=== PATIENT | female | born 1975 | race Caucasian/White ===

== ENCOUNTER 2020-10-25 15:16 | Inpatient (IN) ==
[2020-10-25 16:40] LABS: Basophils % 0.2 % (0.0-0.8); Eosinophils % 0.4 % (0.00-10.9); Hematocrit 42.2 VOL% (35.7-47.0); Immature Granulocytes % 0.4 %; Immature Granulocytes Absolute 0.02 #; Lymphocytes # 1.3 10*3/uL (1.4-4.0); Lymphocytes % 28.6 % (21.3-54.2); Mean Corpuscular HGB Conc 30.8 GM/DL (32-36); Mean Corpuscular Volume 83.1 FL (87-102); Mean Platelet Volume 10.5 FL (9.6-12.0); Monocytes % 8.2 % (1.7-12.7); Neutrophils % 62.2 % (38.7-73.9); Platelet Count 283 T/CUMM (130-400); Red Blood Count 5.08 MC/CUMM (3.8-5.5); Red Cell Distribution Width 14.6 % (9.3-17.3); White Blood Count 4.6 T/CUMM (4-12)
[2020-10-25] MEDS ORDERED: cefTRIAXone 1,000 MG in SODIUM CHLORIDE 0.9% 100 ML IV STA (16:50)
[2020-10-25] MEDS ORDERED: DEXAMETHASONE 4 MG/1 ML VIAL IV STA (16:50)
[2020-10-25] MEDS ORDERED: AZITHROMYCIN INJ 500 MG in SODIUM CHLORIDE 0.9% 250 ML IV STA (16:50)
[2020-10-25 17:00] LABS: Alanine Aminotransferase 36 U/L (13-56); Albumin 3.2 G/DL (3.4-5.0); Alkaline Phosphatase 72 U/L (45-117); Aspartate Amino Transferase 52 U/L (0-37); Bilirubin,Total < 0.39 MG/DL (0.20-1.00); Blood Urea Nitrogen 9 MG/DL (7-18); Calcium 8.8 MG/DL (8.5-10.1); Carbon Dioxide 25 MMOL/L (21-32); Estimated Glom Filtration Rate 144 ML/MIN; Glucose 93 MG/DL (74-106); Osmolality,Calculated 271.8 MOS/KG (273-304); Potassium 3.5 MMOL/L (3.5-5.1); Sodium 137 MMOL/L (136-145); Total Protein 7.6 G/DL (6.4-8.2)
[2020-10-25 17:02] LABS: Ferritin 53.4 ng/ml (8-252)
[2020-10-25 17:18] LABS: Atypical Lymphocytes Few; Band Neutrophils 2 % (0-10); Lymphocytes 29 % (20-55); Segmented Neutrophils 60 % (50-85); Total Cells Counted 100
[2020-10-25 17:19] LABS: Platelet Estimate Normal
[2020-10-25 17:20] LABS: Hypochromasia 2+; Ovalocytes Few; Polychromasia Slight
[2020-10-25] MEDS ORDERED: SODIUM CHLORIDE 0.9% 1,000 ML IV SCH (17:30)
[2020-10-25] MEDS ORDERED: hydrALAZINE 20 MG/1 ML VIAL IV PRN (17:30)
[2020-10-25] MEDS ORDERED: ONDANSETRON 4 MG/2 ML VIAL IV PRN (17:30)
[2020-10-25] MEDS ORDERED: GLUCAGON 1 MG VIAL IM PRN (17:30)
[2020-10-25] MEDS ORDERED: DEXTROSE 50% 25 GM/50 ML VIAL IV PRN (17:30)
[2020-10-25] MEDS ORDERED: diphenhydrAMINE CAP 25 MG CAPSULE PO PRN (17:30)
[2020-10-25] MEDS ORDERED: DOCUSATE SODIUM 100 MG CAPSULE PO PRN (17:30)
[2020-10-25] MEDS ORDERED: ENOXAPARIN 40 MG/0.4 ML SYRINGE SUBCUT SCH (17:30)
[2020-10-25] MEDS ORDERED: ZALEPLON 5 MG CAPSULE PO PRN (17:30)
[2020-10-25] MEDS ORDERED: ACETAMINOPHEN 325 MG TABLET PO PRN (17:30)
[2020-10-25] MEDS ORDERED: NICOTINE 21 MG/24 HR PATCH TRANSDERM PRN (17:30)
[2020-10-25 17:44] LABS: ABG Oxygen Saturation 95.2 % (95-100); ABG PCO2 31.3 MM HG (35-48); ABG PH 7.515 (7.35-7.45); ABG PO2 69.1 MM HG (80-95); ABG TCO2 22.2 MMOL/L (23-27)
[2020-10-25] MEDS ORDERED: IVERMECTIN 3 MG TABLET PO SCH (18:00)
[2020-10-25] MEDS ORDERED: ALBUTEROL INHALER 18 GM INH PRN (18:00)
[2020-10-25] MEDS: SODIUM CHLORIDE 0.9% 1,000 ML IV SCH (19:30)
[2020-10-25] MEDS: guaiFENesin/DM ER 600-30 MG TABLET PO PRN (20:50)
[2020-10-25] MEDS: ENOXAPARIN 40 MG/0.4 ML SYRINGE SUBCUT SCH (20:50)
[2020-10-26] MEDS: ALBUTEROL INHALER 18 GM INH SCH ×6 (02:15→21:03)
[2020-10-26 05:14] LABS: Hemoglobin 11.9 GM/DL (12.0-16.0); Immature Granulocytes % 0.9 %; Immature Granulocytes Absolute 0.02 #; Lymphocytes # 0.8 10*3/uL (1.4-4.0); Lymphocytes % 39.2 % (21.3-54.2); Mean Corpuscular HGB Conc 31.3 GM/DL (32-36); Mean Corpuscular Volume 81.4 FL (87-102); Mean Platelet Volume 10.2 FL (9.6-12.0); Monocytes % 5.2 % (1.7-12.7); Neutrophils % 54.7 % (38.7-73.9); Platelet Count 310 T/CUMM (130-400); Red Blood Count 4.67 MC/CUMM (3.8-5.5); Red Cell Distribution Width 14.6 % (9.3-17.3); White Blood Count 2.1 T/CUMM (4-12)
[2020-10-26 05:34] LABS: Calcium 8.3 MG/DL (8.5-10.1); Osmolality,Calculated 278.4 MOS/KG (273-304); Potassium 3.5 MMOL/L (3.5-5.1)
[2020-10-26 05:43] LABS: Lymphocytes 33 % (20-55); Platelet Estimate Adequate; Segmented Neutrophils 61 % (50-85); Total Cells Counted 100
[2020-10-26] MEDS ORDERED: REMDESIVIR 200 MG in SODIUM CHLORIDE 0.9% 210 ML IV ONE (09:00)
[2020-10-26] MEDS: PANTOPRAZOLE 40 MG TABLET PO SCH (10:10)
[2020-10-26] MEDS: guaiFENesin/DM ER 600-30 MG TABLET PO PRN (10:10)
[2020-10-26] MEDS: CHOLECALCIFEROL 1,000 UNIT TABLET PO SCH (10:10)
[2020-10-26] MEDS: ZINC GLUCONATE 50 MG TABLET PO SCH (10:10)
[2020-10-26] MEDS: FAMOTIDINE 20 MG TABLET PO SCH ×2 (10:10→20:47)
[2020-10-26] MEDS: ASCORBIC ACID 500 MG TABLET PO SCH ×2 (10:10→20:47)
[2020-10-26] MEDS: DEXAMETHASONE 4 MG/1 ML VIAL IV SCH (10:13)
[2020-10-26] MEDS: cefTRIAXone 1,000 MG in SODIUM CHLORIDE 0.9% 100 ML IV SCH (10:14)
[2020-10-26] MEDS: SODIUM CHLORIDE 0.9% 1,000 ML IV SCH (10:19)
[2020-10-26] MEDS ORDERED: FUROSEMIDE 40 MG/4 ML VIAL IV ONE (12:37)
[2020-10-26] MEDS: AZITHROMYCIN INJ 500 MG in SODIUM CHLORIDE 0.9% 250 ML IV SCH (18:42)
[2020-10-26] MEDS: ENOXAPARIN 40 MG/0.4 ML SYRINGE SUBCUT SCH (20:46)
[2020-10-27] MEDS: ALBUTEROL INHALER 18 GM INH SCH ×6 (03:17→23:19)
[2020-10-27 05:05] LABS: Basophils % 0.2 % (0.0-0.8); Hemoglobin 11.4 GM/DL (12.0-16.0); Immature Granulocytes % 1.2 %; Immature Granulocytes Absolute 0.08 #; Lymphocytes # 1.9 10*3/uL (1.4-4.0); Lymphocytes % 29.2 % (21.3-54.2); Mean Corpuscular HGB Conc 30.8 GM/DL (32-36); Mean Platelet Volume 10.2 FL (9.6-12.0); Monocytes % 9.5 % (1.7-12.7); Neutrophils % 59.9 % (38.7-73.9); Platelet Count 405 T/CUMM (130-400); Red Blood Count 4.46 MC/CUMM (3.8-5.5); Red Cell Distribution Width 14.6 % (9.3-17.3); White Blood Count 6.4 T/CUMM (4-12)
[2020-10-27 05:35] LABS: Hypochromasia Slight; Microcytosis Slight; Platelet Estimate Adequate
[2020-10-27 05:38] LABS: Albumin 2.9 G/DL (3.4-5.0); Bilirubin,Total 1.1 MG/DL (0.20-1.00); Calcium 8.3 MG/DL (8.5-10.1); Ferritin 37.4 ng/ml (8-252); Total Protein 6.8 G/DL (6.4-8.2)
[2020-10-27 06:06] LABS: Sedimentation Rate-Westergren 54 MM/HR (0-20)
[2020-10-27] MEDS ORDERED: BENZONATATE 100 MG CAPSULE PO PRN (07:04)
[2020-10-27] MEDS ORDERED: POTASSIUM CHLORIDE 20 MEQ TABLET PO ONE (07:05)
[2020-10-27] MEDS ORDERED: POTASSIUM CHLORIDE 20 MEQ TABLET PO PRN (07:06)
[2020-10-27] MEDS: PANTOPRAZOLE 40 MG TABLET PO SCH (09:13)
[2020-10-27] MEDS: ZINC GLUCONATE 50 MG TABLET PO SCH (09:14)
[2020-10-27] MEDS: ASCORBIC ACID 500 MG TABLET PO SCH ×2 (09:16→20:40)
[2020-10-27] MEDS: DEXAMETHASONE 4 MG/1 ML VIAL IV SCH (09:16)
[2020-10-27] MEDS: CHOLECALCIFEROL 1,000 UNIT TABLET PO SCH (09:16)
[2020-10-27] MEDS: FAMOTIDINE 20 MG TABLET PO SCH ×2 (09:16→20:40)
[2020-10-27] MEDS: cefTRIAXone 1,000 MG in SODIUM CHLORIDE 0.9% 100 ML IV SCH (09:28)
[2020-10-27] MEDS: REMDESIVIR 100 MG in SODIUM CHLORIDE 0.9% 100 ML IV SCH (10:20)
[2020-10-27] MEDS: AZITHROMYCIN INJ 500 MG in SODIUM CHLORIDE 0.9% 250 ML IV SCH (18:37)
[2020-10-27] MEDS: ENOXAPARIN 40 MG/0.4 ML SYRINGE SUBCUT SCH (20:39)
[2020-10-27] MEDS: guaiFENesin/DM ER 600-30 MG TABLET PO PRN (20:40)
[2020-10-28] MEDS: ALBUTEROL INHALER 18 GM INH SCH ×6 (02:56→22:45)
[2020-10-28 06:16] LABS: Basophils % 0.1 % (0.0-0.8); Hematocrit 35.5 VOL% (35.7-47.0); Hemoglobin 10.8 GM/DL (12.0-16.0); Immature Granulocytes % 1.6 %; Immature Granulocytes Absolute 0.12 #; Lymphocytes # 2.4 10*3/uL (1.4-4.0); Lymphocytes % 31.4 % (21.3-54.2); Mean Corpuscular HGB Conc 30.4 GM/DL (32-36); Mean Corpuscular Volume 83.5 FL (87-102); Monocytes % 7.5 % (1.7-12.7); Neutrophils % 59.4 % (38.7-73.9); Platelet Count 405 T/CUMM (130-400); Red Blood Count 4.25 MC/CUMM (3.8-5.5); Red Cell Distribution Width 15.1 % (9.3-17.3); White Blood Count 7.6 T/CUMM (4-12)
[2020-10-28 06:56] LABS: Albumin 2.7 G/DL (3.4-5.0); Bilirubin,Total 0.4 MG/DL (0.20-1.00); Calcium 8.2 MG/DL (8.5-10.1); Ferritin 26.4 ng/ml (8-252); Potassium 3.5 MMOL/L (3.5-5.1); Total Protein 6.5 G/DL (6.4-8.2)
[2020-10-28 07:04] LABS: Lymphocytes 21 % (20-55); Platelet Estimate Increased; Segmented Neutrophils 70 % (50-85); Total Cells Counted 100
[2020-10-28 08:56] LABS: Sedimentation Rate-Westergren 45 MM/HR (0-20)
[2020-10-28] MEDS: CHOLECALCIFEROL 1,000 UNIT TABLET PO SCH (10:58)
[2020-10-28] MEDS: AZITHROMYCIN 250 MG TABLET PO SCH (10:59)
[2020-10-28] MEDS: PANTOPRAZOLE 40 MG TABLET PO SCH (10:59)
[2020-10-28] MEDS: FAMOTIDINE 20 MG TABLET PO SCH ×2 (10:59→20:25)
[2020-10-28] MEDS: ASCORBIC ACID 500 MG TABLET PO SCH ×2 (11:00→20:25)
[2020-10-28] MEDS: ZINC GLUCONATE 50 MG TABLET PO SCH (11:00)
[2020-10-28] MEDS: cefTRIAXone 1,000 MG in SODIUM CHLORIDE 0.9% 100 ML IV SCH (11:10)
[2020-10-28] MEDS: DEXAMETHASONE 4 MG/1 ML VIAL IV SCH (11:11)
[2020-10-28] MEDS: REMDESIVIR 100 MG in SODIUM CHLORIDE 0.9% 100 ML IV SCH (14:20)
[2020-10-28] MEDS: ENOXAPARIN 40 MG/0.4 ML SYRINGE SUBCUT SCH (20:25)
[2020-10-28] MEDS: guaiFENesin/DM ER 600-30 MG TABLET PO PRN (20:26)
[2020-10-29] MEDS: ALBUTEROL INHALER 18 GM INH SCH ×6 (04:08→21:25)
[2020-10-29 05:49] LABS: Basophils % 0.3 % (0.0-0.8); Hematocrit 35.7 VOL% (35.7-47.0); Hemoglobin 11.1 GM/DL (12.0-16.0); Immature Granulocytes % 3.4 %; Immature Granulocytes Absolute 0.27 #; Lymphocytes # 2.4 10*3/uL (1.4-4.0); Lymphocytes % 30.4 % (21.3-54.2); Mean Corpuscular HGB Conc 31.1 GM/DL (32-36); Mean Corpuscular Volume 83.4 FL (87-102); Mean Platelet Volume 10.1 FL (9.6-12.0); Monocytes % 7.4 % (1.7-12.7); Neutrophils % 58.5 % (38.7-73.9); Platelet Count 435 T/CUMM (130-400); Red Blood Count 4.28 MC/CUMM (3.8-5.5); Red Cell Distribution Width 15.1 % (9.3-17.3); White Blood Count 7.8 T/CUMM (4-12)
[2020-10-29 06:20] LABS: Albumin 2.8 G/DL (3.4-5.0); Bilirubin,Total 0.6 MG/DL (0.20-1.00); Calcium 8.2 MG/DL (8.5-10.1); Ferritin 23.4 ng/mL (8-252); Osmolality,Calculated 281.1 MOS/KG (273-304); Potassium 3.6 MMOL/L (3.5-5.1); Total Protein 6.6 G/DL (6.4-8.2)
[2020-10-29 07:12] LABS: Sedimentation Rate-Westergren 36 MM/HR (0-20)
[2020-10-29] MEDS: DEXAMETHASONE 4 MG/1 ML VIAL IV SCH (08:30)
[2020-10-29] MEDS: ZINC GLUCONATE 50 MG TABLET PO SCH (09:20)
[2020-10-29] MEDS: CHOLECALCIFEROL 1,000 UNIT TABLET PO SCH (09:20)
[2020-10-29] MEDS: AZITHROMYCIN 250 MG TABLET PO SCH (09:20)
[2020-10-29] MEDS: ASCORBIC ACID 500 MG TABLET PO SCH ×2 (09:20→20:20)
[2020-10-29] MEDS: PANTOPRAZOLE 40 MG TABLET PO SCH (09:21)
[2020-10-29] MEDS: FAMOTIDINE 20 MG TABLET PO SCH ×2 (09:21→20:20)
[2020-10-29] MEDS: REMDESIVIR 100 MG in SODIUM CHLORIDE 0.9% 100 ML IV SCH (09:21)
[2020-10-29] MEDS: cefTRIAXone 1,000 MG in SODIUM CHLORIDE 0.9% 100 ML IV SCH (11:35)
[2020-10-29] MEDS: ENOXAPARIN 40 MG/0.4 ML SYRINGE SUBCUT SCH (20:20)
[2020-10-30] MEDS: ALBUTEROL INHALER 18 GM INH SCH ×3 (01:08→09:28)
[2020-10-30 06:00] LABS: Basophils % 0.2 % (0.0-0.8); Eosinophils % 0.1 % (0.00-10.9); Hematocrit 35.5 VOL% (35.7-47.0); Hemoglobin 11.4 GM/DL (12.0-16.0); Immature Granulocytes % 3.2 %; Lymphocytes # 2.6 10*3/uL (1.4-4.0); Lymphocytes % 27.6 % (21.3-54.2); Mean Corpuscular HGB Conc 32.1 GM/DL (32-36); Mean Corpuscular Volume 81.6 FL (87-102); Mean Platelet Volume 10.1 FL (9.6-12.0); Monocytes % 6.4 % (1.7-12.7); Neutrophils % 62.5 % (38.7-73.9); Platelet Count 446 T/CUMM (130-400); Red Blood Count 4.35 MC/CUMM (3.8-5.5); Red Cell Distribution Width 14.8 % (9.3-17.3); White Blood Count 9.4 T/CUMM (4-12)
[2020-10-30 06:37] LABS: Alanine Aminotransferase 42 U/L (13-56); Albumin 2.7 G/DL (3.4-5.0); Alkaline Phosphatase 50 U/L (45-117); Aspartate Amino Transferase 29 U/L (0-37); Blood Urea Nitrogen 16 MG/DL (7-18); Calcium 8.3 MG/DL (8.5-10.1); Carbon Dioxide 24 MMOL/L (21-32); Estimated Glom Filtration Rate 144 ML/MIN; Ferritin 17.1 ng/mL (8-252); Glucose 93 MG/DL (74-106); Osmolality,Calculated 283.1 MOS/KG (273-304); Potassium 3.6 MMOL/L (3.5-5.1); Sodium 142 MMOL/L (136-145); Total Protein 6.2 G/DL (6.4-8.2)
[2020-10-30 07:25] LABS: Sedimentation Rate-Westergren 38 MM/HR (0-20)
[2020-10-30 07:40] VITALS: BP 124/83
[2020-10-30] MEDS: CHOLECALCIFEROL 1,000 UNIT TABLET PO SCH (08:56)
[2020-10-30] MEDS: PANTOPRAZOLE 40 MG TABLET PO SCH (08:56)
[2020-10-30] MEDS: ZINC GLUCONATE 50 MG TABLET PO SCH (08:56)
[2020-10-30] MEDS: AZITHROMYCIN 250 MG TABLET PO SCH (08:56)
[2020-10-30] MEDS: ASCORBIC ACID 500 MG TABLET PO SCH (08:56)
[2020-10-30] MEDS: FAMOTIDINE 20 MG TABLET PO SCH (08:56)
[2020-10-30] MEDS: cefTRIAXone 1,000 MG in SODIUM CHLORIDE 0.9% 100 ML IV SCH (08:57)
[2020-10-30] MEDS ORDERED: DEXAMETHASONE 4 MG TABLET PO SCH (09:00)
[2020-10-30] MEDS: REMDESIVIR 100 MG in SODIUM CHLORIDE 0.9% 100 ML IV SCH (09:39)
== END 2020-10-30 13:00 | disposition home or self-care (01) | DRG 177 ==
LOC: N.ED 15:16 → N.EDINP 17:30 → SUATTDRO 17:30 → N.2E 18:21
PROVIDERS: ADMIT Internal Medicine; ATTEND Internal Medicine